=== PATIENT | male | born 1985 | race Two or more races ===

== ENCOUNTER 2018-06-19 00:23 | Inpatient (IN) | payer SELFPAY ==
[~2018-06-19] VITALS: Ht 175.3 cm; Wt 83.0 kg
[2018-06-19 07:36] LABS: Albumin 4.3 g/dL (3.4-5.0); Potassium 4.1 mmol/L (3.5-5.1)
[2018-06-19 07:39] LABS: BUN/Creatinine Ratio 19.1
[2018-06-19 07:42] LABS: Bilirubin, Total 0.5 mg/dL (0.2-1.0)
[2018-06-19 07:43] LABS: Urine WBC None Seen /hpf (0 - 3)
[2018-06-19 07:55] LABS: Urine Bacteria NONE SEEN /hpf (None Seen); Urine Blood 2+ /uL (Negative); Urine Specific Gravity 1.005 (1.001-1.035)
[2018-06-19 07:57] LABS: Basophils # (auto) 0 uL; Basophils % (auto) 0.8 % (0.0-2.0); Eosinophils # (auto) 0.1 uL; Eosinophils % (auto) 2.2 % (0.0-7.0); Hematocrit 45.1 % (41.0-53.0); Lymphocytes # (auto) 2.3 uL; Lymphocytes % (auto) 48.8 % (10.0-50.0); Mean Corpuscular Hemoglobin 30.2 pg (28.0-32.0); Mean Corpuscular Hgb Conc. 35.5 g/dL (32.0-36.0); Monocytes # (auto) 0.4 uL; Monocytes % (auto) 7.7 % (0.0-12.0); Neutrophils # (auto) 1.9 uL; Neutrophils % (auto) 40.5 % (37.0-80.0); Nucleated Red Blood Cells % 0.1 %; Platelet Count (auto) 183 10^3/uL (140-450); Red Blood Cells 5.31 10^6/uL (4.5-5.90); Red Cell Distribution Width 12.6 % (11.8-14.3); White Blood Cell 4.8 10^3/uL (4.4-10.8)
[2018-06-19] MEDS ORDERED: TAMSULOSIN HYDROCHLORIDE 0.4 MG CAP PO ONE (08:15)
[2018-06-19] MEDS ORDERED: SODIUM CHLORIDE 0.9% 1,000 ML IVB ONE (08:15)
[2018-06-19] MEDS ORDERED: METOCLOPRAMIDE HCL 5MG/ml INJ 2ml VIAL IV ONE (08:15)
[2018-06-19] MEDS ORDERED: KETOROLAC TROMETH 30 MG/ML 1ML VIAL IV ONE (08:15)
[2018-06-19] MEDS ORDERED: ACETAMINOPHEN 500 MG TAB PO PRN (12:30)
[2018-06-19] MEDS ORDERED: ONDANSETRON HCL 4 MG/2 ML VIAL IV PRN (12:30)
[2018-06-19] MEDS ORDERED: MORPHINE SULFATE 4 MG/ML SYR/VIAL IV PRN (12:30)
[2018-06-19] MEDS ORDERED: HYDROcodone-ACET 5/325MG TAB PO PRN (12:30)
[2018-06-19] MEDS: SODIUM CHLORIDE 0.9% 1,000 ML IV SCH ×2 (13:28→20:30)
[2018-06-19 16:31] VITALS: BP 143/66
[2018-06-19] MEDS: TAMSULOSIN HYDROCHLORIDE 0.4 MG CAP PO SCH (17:21)
[2018-06-19 22:00] VITALS: BP 122/59
[2018-06-20] MEDS: SODIUM CHLORIDE 0.9% 1,000 ML IV SCH ×3 (04:30→20:30)
[2018-06-20 07:20] LABS: Basophils # (auto) 0 uL; Basophils % (auto) 0.4 % (0.0-2.0); Eosinophils # (auto) 0.1 uL; Hematocrit 45.1 % (41.0-53.0); Hemoglobin 15.9 g/dL (13.5-17.5); Lymphocytes # (auto) 1.9 uL; Lymphocytes % (auto) 45.1 % (10.0-50.0); Mean Corpuscular Hemoglobin 30.1 pg (28.0-32.0); Mean Corpuscular Hgb Conc. 35.2 g/dL (32.0-36.0); Mean Corpuscular Volume 85.4 fL (80.0-100.0); Monocytes # (auto) 0.4 uL; Monocytes % (auto) 8.6 % (0.0-12.0); Neutrophils # (auto) 1.9 uL; Neutrophils % (auto) 43.9 % (37.0-80.0); Nucleated Red Blood Cells % 0.7 %; Platelet Count (auto) 170 10^3/uL (140-450); Red Blood Cells 5.29 10^6/uL (4.5-5.90); Red Cell Distribution Width 12.6 % (11.8-14.3); White Blood Cell 4.3 10^3/uL (4.4-10.8)
[2018-06-20 07:47] LABS: BUN/Creatinine Ratio 14.7; Calcium 8.4 mg/dL (8.5-10.1); Potassium 4.1 mmol/L (3.5-5.1)
[2018-06-20 08:28] VITALS: BP 146/64
[2018-06-20] MEDS: cefTRIAXone 1GM/50ML D5W 50 ML IV SCH (09:40)
--- NOTE | 2018-06-20 11:41 | NUR ---
MD Dos Santos at bedside. Updated on patient status. Instructed to call Urology to come see patient for clearance to go home. Will follow through with new orders.
--- NOTE | 2018-06-20 11:42 | NUR ---
Paged MD [facility] per MD Dos Santos orders. Awaiting call back.
--- NOTE | 2018-06-20 12:25 | NUR ---
Kori [facility]. Awaiting call back.
[2018-06-20 12:51] VITALS: BP 122/62
[2018-06-20 16:26] VITALS: BP 125/59
[2018-06-20] MEDS: TAMSULOSIN HYDROCHLORIDE 0.4 MG CAP PO SCH (17:55)
--- NOTE | 2018-06-20 19:27 | NUR ---
CLOSING NOTE REPORT GIVEN TO [employer] TEACHER RNNILE. RN AWARE OF DISCHARGE ORDER, PATIENT PENDING UROLOGY CONSULT. PER MD ABBOTT, WAIT FOR UROLOGY TO COME SEE PATIENT. MD SAMUEL PAGED (SEE NOTE), NO RETURN CALL. PATIENT IN BED LOW LOCK POSITION. OXYGEN ON, IV PATENT, FAMILY AT BEDSIDE. CALL LIGHT WITHIN REACH. NO S/S OF DISTRESS.
--- NOTE | 2018-06-20 19:40 | NUR ---
Opening Shift Note Assumed care of patient, awake and alert, ambulatory, family at bedside. No S/S of distress/SOB or pain. Instructed on POC and to call for assist PRN, patient verbalized understanding, will continue to monitor for changes Q1hr and PRN.
[2018-06-20 21:00] VITALS: BP 124/72
[2018-06-21] MEDS: SODIUM CHLORIDE 0.9% 1,000 ML IV SCH (05:00)
[2018-06-21 05:25] VITALS: BP 111/59
--- NOTE | 2018-06-21 07:25 | NUR ---
OPENING NOTE ASSUMED CARE OF PATIENT. PT IS SITTING ON BED, HOB SEMI-FOWLERS. A&O X4. ON ROOM AIR, O2 SATURATION 97%. NO SIGNS OF SOB/DISTRESS. PATIENT DENIES ANY PAIN. SAFETY PRECAUTIONS IN PLACE INCLUDING, BED SET TO LOWEST POSITION/LOCKED. BEDSIDE RAILS UP X2. CALL LIGHT WITHIN REACH. INSTRUCTED PT TO CALL FOR ASSISTANCE. DISCUSSED POC WITH PT. PT VERBALIZED UNDERSTANDING. WILL CONTINUE TO MONITOR Q 1HR AND PRN.
[2018-06-21 08:00] VITALS: BP 112/51
[2018-06-21] MEDS: cefTRIAXone 1GM/50ML D5W 50 ML IV SCH (11:26)
[2018-06-21 12:30] VITALS: BP 131/61
[2018-06-21 13:03] VITALS: BP 112/51
--- NOTE | 2018-06-21 13:42 | NUR ---
Discharge instructions given as ordered. Encourage to follow up with urgent care and urology. All questions and concerns addressed. Patient verbalized understanding. No home medications held in Pharmacy and no vaccines given. IV removed with catheter intact, pressure dressing applied.
--- NOTE | 2018-06-21 14:08 | NUR ---
Patient ambulated to vehicle with all personal belongings, accompanied by staff and family member. No distress noted at time of departure.
== END 2018-06-21 14:08 | disposition home or self-care (01) | DRG 694 ==
LOC: ER 00:23 → OVERFLOW 12:33 → CENTRAL 16:24
PROVIDERS: ADMIT Nurse Practitioner Acute Care; ATTEND Internal Medicine
DX: N13.2 Hydronephrosis with renal and ureteral calculous obstruction (principal); Z68.1 Body mass index [BMI] 19.9 or less, adult; E66.3 Overweight
CPT/HCPCS: 36415; 74176; 80048; 80053; 81001; 82150; 83690; 85025; 96361; 96374; 96375; G0378; J0696; J1885